=== PATIENT | male | born 1935 | race Caucasian/White ===

== ENCOUNTER → 2017-02-10 | Outpatient (CLI) | payer MEDICARE, OTHER | LOC: RAD 11:15 | DX: R22.0 Localized swelling, mass and lump, head (principal); L08.9 Local infection of the skin and subcutaneous tissue, unspecified | CPT/HCPCS: Q9967 ==

== ENCOUNTER → 2017-08-25 | Outpatient (CLI) | payer MEDICARE, OTHER | LOC: VAS 16:47 → RAD 17:00 | DX: I51.7 Cardiomegaly (principal); I51.89 Other ill-defined heart diseases ==

== ENCOUNTER 2017-09-16 09:00 | Outpatient (RCR) | payer MEDICARE, OTHER | END 2017-09-16 09:30 | disposition home or self-care (01) | LOC: PT 09:00 | DX: M54.32 Sciatica, left side (principal) ==